=== PATIENT | male | born 1940 | race Caucasian/White ===

== ENCOUNTER 2025-02-15 22:48 | Inpatient (IN) | payer MEDICAID, MEDICARE ==
[~2025-02-15] VITALS: Ht 165.1 cm; Wt 78.6 kg
[~2025-02-15 22:48] MED LIST: CHOLESTEROL MED; HTN MED; MED FOR PROSTATE CA
[2025-02-15 23:20] LABS: BASOPHILS % (AUTO) 0.9 % (0.0-2.0); EOSINOPHILS % (AUTO) 4.8 % (1.0-6.0); HEMATOCRIT 32.3 % (41-53); HEMOGLOBIN 10.6 g/dL (13.5-17.5); LYMPHOCYTES # (AUTO) 1.9 K/uL (1.0-4.8); LYMPHOCYTES % (AUTO) 33.4 % (22.0-44.0); MEAN CORPUSCULAR HEMOGLOBIN 30.9 pg (26.0-34.0); MEAN CORPUSCULAR VOLUME 94 fL (80-100); MONOCYTES # (AUTO) 0.8 K/uL (0.1-1.0); MONOCYTES % (AUTO) 13.9 % (2.0-9.0); NEUTROPHILS # (AUTO) 2.7 K/uL (1.8-7.7); PLATELET COUNT (AUTO) 176 K/uL (150-450); RED BLOOD CELL COUNT(AUTO) 3.45 MIL/uL (4.50-5.90); RED CELL DISTRIBUTION WIDTH 16.1 % (11.5-14.5); WHITE BLOOD COUNT (AUTO) 5.8 K/uL (4.5-11.0)
[2025-02-15 23:35] LABS: ALBUMIN 3.6 g/dL (3.4-5.0); BILIRUBIN,DIRECT 0.2 mg/dL (0.00-0.20); BILIRUBIN,TOTAL 0.7 mg/dL (0.1-1.0); TOTAL PROTEIN, SERUM 7.7 g/dL (6.4-8.2)
[2025-02-15 23:36] LABS: B-TYPE NATRIURETIC PEPTIDE 625 pg/mL (0-100)
[2025-02-15 23:37] LABS: ANION GAP 7 mmol/L (8-16); CALCIUM, TOTAL 9.2 mg/dL (8.8-10.5); CARBON DIOXIDE 27 mmol/L (22-29); CHLORIDE 99 mmol/L (98-107); CREATININE 1.54 mg/dL (0.60-1.30); GLOMERULAR FILTR. RATE CALC 43 mL/min (>60); GLUCOSE,RANDOM 111 mg/dL (70-110); SODIUM SERUM 133 mmol/L (136-145); TROPONIN I-HIGH SENSITIVITY 31 ng/L (<76); UREA NITROGEN, BLOOD 61 mg/dL (7-18)
[2025-02-15 23:44] LABS: POTASSIUM 6.2 mmol/L (3.5-5.1)
[2025-02-16 00:03] LABS: APPEARANCE,URINE CLEAR (CLEAR); BILIRUBIN,URINE NEGATIVE (NEGATIVE); COLOR,URINE COLORLESS (YELLOW); GLUCOSE, URINE (UA) NEGATIVE (NEGATIVE); KETONES,URINE NEGATIVE (NEGATIVE); LEUKOCYTE ESTERASE ,URINE NEGATIVE (NEGATIVE); NITRATE,URINE NEGATIVE (NEGATIVE); OCCULT BLOOD,URINE NEGATIVE (NEGATIVE); PH,URINE 6.5 (5.0-8.0); PH,URINE DRUG SCREEN 6.5 (5.0-8.0); PROTEIN,URINE NEGATIVE (NEGATIVE); SPECIFIC GRAVITIY, URINE 1.007 (1.003-1.030); UROBILINOGEN,URINE <=1.0 mg/dL (<=1.0)
[2025-02-16 00:09] LABS: ALCOHOL, URINE DRUG SCREEN NEGATIVE (NEGATIVE); AMPHET/METH SCREEN,URINE NEGATIVE (NEGATIVE); BARBITURATE SCREEN, URINE NEGATIVE (NEGATIVE); BENZODIAZEPINES SCREEN,URINE NEGATIVE (NEGATIVE); CANNABINOID SCREEN,URINE NEGATIVE (NEGATIVE); COCAINE SCREEN,URINE NEGATIVE (NEGATIVE); METHADONE SCREEN, URINE NEGATIVE (NEGATIVE); OPIATE SCREEN,URINE NEGATIVE (NEGATIVE); PHENCYCLIDINE SCREEN,URINE NEGATIVE (NEGATIVE)
[2025-02-16 00:36] LABS: BACTERIA,URINE None Seen /HPF (None Seen); RBC,URINE None Seen /HPF (0-2); SQUAMOUS EPITHELIAL CELL,UR Rare /LPF (None Seen); WBC,URINE None Seen /HPF (0-5)
[2025-02-16] MEDS: INSULIN REGULAR, HUMAN 100 UNITS/ML IVP ONE (01:11)
[2025-02-16] MEDS: DEXTROSE 50%-WATER 25 GM/50 ML SYRINGE IVP ONE (01:12)
[2025-02-16] MEDS ORDERED: ALBUTEROL SULFATE 2.5 MG/0.5 ML NEB SOLUTION NEB ONE (01:15)
[2025-02-16] MEDS ORDERED: POTA-92 PO (01:20)
[2025-02-16] MEDS ORDERED: [UNRECOGNIZED DRUG - OTHER] CAUDAL (01:20)
[2025-02-16] MEDS ORDERED: FURO20TA5 PO (01:20)
[2025-02-16] MEDS ORDERED: VALS160T2 PO (01:20)
[2025-02-16] MEDS ORDERED: NAPR-1197 PO (01:20)
[2025-02-16] MEDS: CALCIUM GLUCONATE 2,000 MG in DEXTROSE 5%-WATER 50 ML IV ONE (01:23)
[2025-02-16 01:35] LABS: GLUCOMETER DEV NAME(LOC) ER.7; GLUCOSE,POINT OF CARE 103 MG/DL (70-110)
[2025-02-16] MEDS: FUROSEMIDE 40 MG/4 ML VIAL IVP ONE (01:40)
[2025-02-16] MEDS: SODIUM CHLORIDE 0.9% 500 ML IV ONE (01:41)
[2025-02-16] MEDS: CefTRIAXone 1 GM/DEXTROSE 50 ML IV SCH (01:41)
[2025-02-16] MEDS: SODIUM ZIRCONIUM CYCLOSILICATE 5 GM POWDER PACKET PO ONE (01:41)
[2025-02-16] MEDS: SODIUM BICARBONATE [ADULT] 8.4% 50 MEQ/50 ML SYRINGE IVP ONE (01:57)
[2025-02-16] MEDS ORDERED: SODIUM CHLORIDE 0.9% 1,000 ML ONE (03:46)
[2025-02-16] MEDS: AZITHROMYCIN 500 MG/NS 250 ML IV SCH (04:04)
[2025-02-16 04:19] VITALS: BP 168/60; PULSE 44; RESP 16; TEMP 97.7; O2SAT 96
[2025-02-16 07:49] LABS: CALCIUM, TOTAL 9.7 mg/dL (8.8-10.5); CREATININE 1.45 mg/dL (0.60-1.30); POTASSIUM 4.8 mmol/L (3.5-5.1)
[2025-02-16 08:00] VITALS: BP 168/58; PULSE 51; RESP 18; TEMP 98.1; O2SAT 98
[2025-02-16] MEDS: DOCUSATE SODIUM 100 MG CAPSULE PO SCH (08:35)
[2025-02-16] MEDS: HEPARIN SODIUM,PORCINE 5,000 UNITS/ML VIAL SQ SCH (08:35)
[2025-02-16 11:45] VITALS: BP 151/66; PULSE 49; RESP 18; TEMP 98.2; O2SAT 97
[2025-02-16 15:32] VITALS: BP 164/65; PULSE 50; RESP 18; TEMP 98; O2SAT 97
[2025-02-16 20:14] VITALS: BP 153/52; PULSE 49; RESP 18; TEMP 98.1; O2SAT 97
[2025-02-17] VITALS (9 sets, daily range): BP systolic 146–187; BP diastolic 59–85; PULSE 49–55; RESP 16–18; TEMP 97.3–98.6; O2SAT 95–98
[2025-02-17] MEDS ORDERED: SODIUM CHLORIDE 0.9% 500 ML IV ONE (00:06)
[2025-02-17 08:18] LABS: BASOPHILS % (AUTO) 1.3 % (0.0-2.0); EOSINOPHILS % (AUTO) 7.1 % (1.0-6.0); HEMATOCRIT 34.6 % (41-53); HEMOGLOBIN 11.5 g/dL (13.5-17.5); LYMPHOCYTES # (AUTO) 1.4 K/uL (1.0-4.8); LYMPHOCYTES % (AUTO) 30.6 % (22.0-44.0); MEAN CORPUSCULAR HEMOGLOBIN 31.1 pg (26.0-34.0); MEAN CORPUSCULAR HGB CONC 33.4 G/dL (31.0-37.0); MEAN CORPUSCULAR VOLUME 93 fL (80-100); MONOCYTES # (AUTO) 0.6 K/uL (0.1-1.0); MONOCYTES % (AUTO) 13.2 % (2.0-9.0); NEUTROPHILS # (AUTO) 2.2 K/uL (1.8-7.7); NEUTROPHILS % (AUTO) 47.8 % (40.0-70.0); PLATELET COUNT (AUTO) 184 K/uL (150-450); RED BLOOD CELL COUNT(AUTO) 3.71 MIL/uL (4.50-5.90); RED CELL DISTRIBUTION WIDTH 15.5 % (11.5-14.5); WHITE BLOOD COUNT (AUTO) 4.7 K/uL (4.5-11.0)
[2025-02-17 08:31] LABS: CALCIUM, TOTAL 9.4 mg/dL (8.8-10.5); CREATININE 1.19 mg/dL (0.60-1.30); MAGNESIUM 1.9 mg/dL (1.80-2.40); POTASSIUM 4.3 mmol/L (3.5-5.1)
[2025-02-17] MEDS: ACETAMINOPHEN 325 MG TABLET PO PRN (08:36)
[2025-02-17] MEDS: AmLODIPine BESYLATE 10 MG TABLET PO SCH (18:06)
[2025-02-17] MEDS: HydrALAZINE HCL 25 MG TABLET PO SCH (21:46)
[2025-02-18] VITALS: BP 156/64; PULSE 52; RESP 18; TEMP 97.5; O2SAT 98
[2025-02-18 04:00] VITALS: BP 167/67; PULSE 51; RESP 16; TEMP 97.6; O2SAT 97
[2025-02-18 08:42] VITALS: BP 155/66; PULSE 60; RESP 18; TEMP 97.7; O2SAT 96
[2025-02-18 12:24] VITALS: BP 123/67; PULSE 58; RESP 18; TEMP 97.9; O2SAT 95
[2025-02-18] MEDS ORDERED: HYDR25TA84 PO (12:32)
[2025-02-18] MEDS ORDERED: AMLO-258 PO (12:32)
[2025-02-18 15:48] VITALS: BP 148/68; PULSE 57; RESP 18; TEMP 98.6; O2SAT 97
== END 2025-02-18 17:02 | disposition home or self-care (01) | DRG 682 ==
LOC: EMS 22:49 → EDH 02-16 01:53 → 5S 02-16 02:37
PROVIDERS: ADMIT Internal Medicine; ATTEND Internal Medicine
DX: N17.0 Acute kidney failure with tubular necrosis (principal); J18.9 Pneumonia, unspecified organism; I13.0 Hypertensive heart and chronic kidney disease with heart failure and stage 1 through stage 4 chronic kidney disease, or unspecified chronic kidney disease; E87.5 Hyperkalemia; D64.9 Anemia, unspecified; I50.9 Heart failure, unspecified; N18.9 Chronic kidney disease, unspecified; R00.1 Bradycardia, unspecified; R54 Age-related physical debility; E11.22 Type 2 diabetes mellitus with diabetic chronic kidney disease; E78.5 Hyperlipidemia, unspecified; Z85.46 Personal history of malignant neoplasm of prostate; Z79.899 Other long term (current) drug therapy
CPT/HCPCS: 71045; 76770; 80048; 80076; 80307; 81001; 82962; 83735; 83880; 84132; 84484; 85025; 93005; 93306; 96365; 96375; 97116; 97162; 97530; 99285; G0378; J0456; J0610; J0696; J1644; J1815; J1940; J3490; J7030; J7040; J7060; 36415-L1; 36415-TC